=== PATIENT | male | born 1995 | race Caucasian/White ===

== ENCOUNTER 2016-12-22 22:11 | Emergency (ER) | payer MEDICAID, OTHER ==
[~2016-12-22] VITALS: Ht 182.9 cm; Wt 107.5 kg
[2016-12-22 22:15] VITALS: Ht 182.9 cm; Wt 107.5 kg
[2016-12-23] MEDS ORDERED: LIDOCAINE 2% (MDV) 20 ML INJ INJ ONE (00:30)
[2016-12-23] MEDS ORDERED: HYDROCODONE/APAP (5/325) TAB PO ONE (00:30)
[2016-12-23] MEDS ORDERED: HYDR-906 PO (01:00)
--- NOTE | 2016-12-23 02:52 | ERD ---
ER Documentation Chief Complaint Date/Time DATE: 12/23/16 TIME: 02:49 Chief Complaint ABSCESSS TAIL BONE AREA HPI This patient is a 21-year-old male presenting to the emergency department with complaints of abscess to his left and right lower gluteal areas which has been ongoing for the past 4 days. The patient is currently on clindamycin 3 times daily by his primary care physician and states he has about 15 capsules left to take. He does report some discharge and swelling in the area. He also has pain which she rates moderate in severity, but much worse when he sits. He denies fevers, chills, or other symptoms currently. ROS All systems reviewed and are negative except as per history of present illness. Medications Home Meds Active Scripts Hydrocodone/Acetaminophen (Gay 5-325 Tablet) 1 Each Tablet, 1 TAB PO Q6H Y for PAIN, #10 TAB Prov:MOIRA SHEETS PA-C 12/23/16 Allergies Allergies: Coded Allergies: No Known Allergy (Unverified , 12/22/16) PMhx/Soc Medical and Surgical Hx: pt denies Medical Hx, pt denies Surgical Hx Hx Alcohol Use: Yes Hx Substance Use: No Hx Tobacco Use: No Smoking Status: Never smoker Physical Exam Vitals Vital Signs Date Time Temp Pulse Resp B/P Pulse Ox O2 Delivery O2 Flow Rate FiO2 12/22/16 22:15 97.9 103 20 146/92 98 Physical Exam Const: Nontoxic, well-appearing male in no acute distress. Head: Atraumatic Eyes: Normal Conjunctiva ENT: Normal External Ears, Nose and Mouth. Neck: Full range of motion..~ No meningismus. Resp: No signs of respiratory distress. Skin: There is an approximate 3 cm x 3 cm fluctuant abscess noted to the right lower gluteal area. There is another 1 cm x 1 cm indurated abscess to the left lower gluteal area. The right abscess is actively purulent material and serosanguineous fluid. There is no significant erythema or warmth surrounding the abscesses. Back: No midline or flank tenderness Ext: No cyanosis, or edema Neur: Awake and alert Psych: Normal Mood and Affect Results 24 hrs Current Medications Medications (Trade) Dose Ordered Sig/Franny Route PRN Reason Start Time Stop Time Status Last Admin Dose Admin Lidocaine (Xylocaine 2% (Mdv) 20 ml) 20 ml ONCE ONCE INJ 12/23/16 00:30 12/23/16 00:31 DC 12/23/16 00:40 Acetaminophen/ Hydrocodone Bitart (Gay (5/325)) 1 tab ONCE ONCE PO 12/23/16 00:30 12/23/16 00:31 DC 12/23/16 00:41 Procedures/MDM 21-year-old male presents to the emergency department for abscess. Abscess Incision and Drainage with irrigation by me: Location: Right gluteal area Anesthesia: Local 1% Lidocaine Technique: Irrigated. Disrupted loculations w/ instrumentation Packing: None, left open to drain. Complications: Neurovascularly intact post procedure 48 hour wound check. Scar minimization instructions given. Patient's skin symptoms have stabilized while they have been evaluated in the department and are appropriate for outpatient care and work up. Exam and w/u not consistent w/ sepsis, deep space infection, or foreign body. Patient instructed to continue clindamycin and he was given a prescription for Gay to be taken only as needed for severe pain. He may take ibuprofen for mild or moderate pain. Departure Diagnosis: Primary Impression: Abscess Condition: Fair Patient Instructions: Abscess, Incision And Drainage Referrals: [facility] YOU HAVE RECEIVED A MEDICAL SCREENING EXAM AND THE RESULTS INDICATE THAT YOU DO NOT HAVE A CONDITION THAT REQUIRES URGENT TREATMENT IN THE EMERGENCY DEPARTMENT. FURTHER EVALUATION AND TREATMENT OF YOUR CONDITION CAN WAIT UNTIL YOU ARE SEEN IN YOUR DOCTORS OFFICE WITHIN THE NEXT 1-2 DAYS. IT IS YOUR RESPONSIBILITY TO MAKE AN APPOINTMENT FOR FOLOW-UP CARE. IF YOU HAVE A PRIMARY DOCTOR --you should call your primary doctor and schedule an appointment IF YOU DO NOT HAVE A PRIMARY DOCTOR YOU CAN CALL OUR PHYSICIAN REFERRAL HOTLINE AT IF YOU CAN NOT AFFORD TO SEE A PHYSICIAN YOU CAN CHOSE FROM THE FOLLOWING [facility] [address] [facility]. [facility] [address] [facility]. [facility] [address] [facility]. [facility] [address] [facility]. [facility] [address] [facility]. [facility]. [address] Additional Instructions: Follow up with your PCP within the next 1-3 days for a repeat evaluation. If you require a referral to a specialist, your Primary Care Provider may be able to provide this for you. In most patient cases, a referral is not required. If you have further questions regarding this matter, please ask your Primary Care Provider. Return the the emergency department immediately if symptoms worsen or change. If you have any questions regarding medications, ask your pharmacist or us before you leave. If any adverse reactions, occur while taking your medications, discontinue the treatment and return to the emergency department immediately. If any new or worsening symptoms, uncontrolled fevers, or other unexplained symptoms occur, return to the emergency department immediately. Take your medications as directed, and complete the entire course of treatment. MOIRA SHEETS PA-C Dec 23, 2016 02:50
== END 2016-12-23 01:22 | disposition home or self-care (01) ==
LOC: FTE 22:11
DX: L02.212 Cutaneous abscess of back [any part, except buttock and flank] (principal)
CPT/HCPCS: 10060; Z7502; Z7610